=== PATIENT | male | born 1995 | race Caucasian/White ===

== ENCOUNTER 2019-07-25 16:46 | Emergency (ER) | payer BC ==
--- NOTE | 2019-07-25 17:13 | EDM.PDOC ---
ED HPI GENERAL MEDICAL PROBLEM - General Chief Complaint: Lower Extremity Injury/Pain Stated Complaint: LT ANKLE INJURY Time Seen by Provider: 07/25/19 16:55 Source of Information: Reports: Patient History Limitations: Reports: No Limitations - History of Present Illness INITIAL COMMENTS - FREE TEXT/NARRATIVE: The patient presents with a left ankle injury. He was riding horse and got bucked off and the horse landed on his left ankle. He can put some weight on it. He has no other injuries. Onset: Sudden Duration: Hour(s): Location: Reports: Lower Extremity, Left (ankle) Quality: Reports: Sharp Severity: Moderate Improves with: Reports: Immobilization Worsens with: Reports: Movement Context: Reports: Trauma (Horse landed on his left ankle) Associated Symptoms: Reports: No Other Symptoms Left Ankle Pain Score (Numeric/FACES): 0 - Related Data Allergies Allergy/AdvReac Type Severity Reaction Status Date / Time No Known Allergies Allergy Verified 07/25/19 16:57 Past Medical History Cardiovascular History: Reports: None Respiratory History: Reports: None Gastrointestinal History: Reports: None Genitourinary History: Reports: None Musculoskeletal History: Reports: None Neurological History: Reports: None Psychiatric History: Reports: None Endocrine/Metabolic History: Reports: None Hematologic History: Reports: None Immunologic History: Reports: None Oncologic (Cancer) History: Reports: None Dermatologic History: Reports: None - Infectious Disease History Infectious Disease History: Reports: None - Past Surgical History Head Surgeries/Procedures: Reports: None HEENT Surgical History: Reports: Oral Surgery Social & Family History - Tobacco Use Smoking Status *Q: Never Smoker - Caffeine Use Caffeine Use: Reports: None - Recreational Drug Use Recreational Drug Use: No Review of Systems - Review of Systems Review Of Systems: See Below Constitutional: Reports: No Symptoms Eyes: Reports: No Symptoms Ears: Reports: No Symptoms Nose: Reports: No Symptoms Mouth/Throat: Reports: No Symptoms Respiratory: Reports: No Symptoms Cardiovascular: Reports: No Symptoms GI/Abdominal: Reports: No Symptoms Genitourinary: Reports: No Symptoms Musculoskeletal: Reports: Other (Pain to the left ankle) ED EXAM, GENERAL - Physical Exam Exam: See Below Exam Limited By: No Limitations General Appearance: Alert, No Apparent Distress Ears: Normal External Exam Nose: Normal Inspection Head: Atraumatic, Normocephalic Neck: Normal Inspection Respiratory/Chest: No Respiratory Distress Extremities: Other (Pain upon palpation to the left lateral ankle with some edema. Good pulses and sensation distally.) Course - Vital Signs Last Recorded V/S: Last Vital Signs Temp 98.4 F 07/25/19 16:54 Pulse 93 07/25/19 16:54 Resp 16 07/25/19 16:54 BP 165/75 H 07/25/19 16:54 Pulse Ox 98 07/25/19 16:54 - Orders/Labs/Meds Orders: Active Orders 24 hr Category Date Time Status Ankle Min 3V Lt [CR] Stat Exams 07/25/19 16:55 Taken - Re-Assessments/Exams Free Text/Narrative Re-Assessment/Exam: 07/25/19 17:13 I have ordered an x-ray of his ankle. 07/25/19 17:46 His x-ray looks good. I will get him in a stirrup splint and he has crutches. Departure - Departure Time of Disposition: 17:50 Disposition: Home, Self-Care 01 Condition: Good Clinical Impression: Contusion of ankle, left Qualifiers: Encounter type: initial encounter Qualified Code(s): S90.02XA - Contusion of left ankle, initial encounter Crushing injury of left ankle Qualifiers: Encounter type: initial encounter Qualified Code(s): S97.02XA - Crushing injury of left ankle, initial encounter - Discharge Information *PRESCRIPTION DRUG MONITORING PROGRAM REVIEWED*: No *COPY OF PRESCRIPTION DRUG MONITORING REPORT IN PATIENT HUA: No Referrals: PCP,None [Primary Care Provider] - Ozzie Lorenzo PA-C [Physician [facility] [employer] Director] - 1 Week Forms: ED Department Discharge Additional Instructions: Ice your ankle for 15 minutes 3 times per day for 2 days. Try to elevate your ankle as much as you can for 2 days. Wear the splint for comfort. Use the crutches as needed for a couple days. Follow up with Ozzie Lorenzo if you are not better in a week. Please return if you are worse. - My Orders Last 24 Hours: My Active Orders 07/25/19 16:55 Ankle Min 3V Lt [CR] Stat - Assessment/Plan Last 24 Hours: My Active Orders 07/25/19 16:55 Ankle Min 3V Lt [CR] Stat
--- NOTE | 2019-07-26 14:08 | CR ---
Left ankle: Four views of the left ankle were obtained. Comparison: No previous left ankle exam. Ankle mortise is symmetric. No fracture, dislocation or other bony abnormality is seen. Impression: 1. No abnormality is identified on left ankle exam. Diagnostic code #1
== END 2019-07-25 18:15 | disposition home or self-care (01) ==
LOC: JD.ED 16:46
DX: S97.02XA Crushing injury of left ankle, initial encounter (principal); S90.02XA Contusion of left ankle, initial encounter; W55.12XA Struck by horse, initial encounter; Y93.52 Activity, horseback riding
CPT/HCPCS: 73610-26-LT; 73610-LT; 99282; 99283-25